=== PATIENT | male | born 1975 | race Caucasian/White ===

== ENCOUNTER 2020-10-13 11:24 | Inpatient (IN) | payer OTHER ==
[2020-10-07 18:13] VITALS: BMI 21.2
[~2020-10-13 11:24] MED LIST: BUPIVACAINE HCL/PF 0.5% (5 MG/ML) 30 ML VIAL IJ ONE; BUPIVACAINE LIPOSOME/PF (EXPAREL) 266 MG/20 ML VIAL ONE; DEXAMETHASONE SOD PHOSPHATE 4 MG/1 ML VIAL ONE; MIDAZOLAM HCL 2 MG/2 ML SINGLE DOSE VIAL ONE; ONDANSETRON 4 MG/2 ML VIAL ONE; PHENYLEPHRINE HCL 10 MG/1 ML SINGLE DOSE VIAL ONE; PROPOFOL 20 ML ONE; ROCURONIUM BROMIDE 50 MG/5 ML VIAL ONE; SUCCINYLCHOLINE CHLORIDE 200 MG/10 ML SYRINGE ONE; THROMBIN (RECOMBINANT) 5,000 UNIT VIAL TP ONE; ceFAZolin SODIUM 1 GM VIAL ONE; ePHEDrine SULFATE 50 MG/1 ML AMPULE ONE
[2020-10-13] MEDS ORDERED: oxyCODONE HCL 5 MG TABLET ONE (11:43)
[2020-10-13] MEDS: oxyCODONE HCL 5 MG TABLET PO ONE ×2 (11:48→12:48)
[2020-10-13] MEDS ORDERED: ONDANSETRON 4 MG/2 ML VIAL IVPUSH PRN (12:33)
[2020-10-13] MEDS ORDERED: oxyCODONE HCL 5 MG TABLET PO PRN (12:34)
[2020-10-13] MEDS ORDERED: LACTATED RINGERS SOLUTION 1,000 ML IV SCH (12:45)
[2020-10-13] MEDS: oxyCODONE HCL 5 MG TABLET PO PRN ×3 (13:10→21:02)
[2020-10-13] MEDS: oxyCODONE HCL 10 MG SUSTAINED ACTING TABLET PO SCH ×2 (13:12→21:01)
[2020-10-13] MEDS: ACETAMINOPHEN 325 MG TABLET (FP) PO SCH ×2 (13:13→18:22)
[2020-10-13] MEDS: ceFAZolin 2 GRAM PREMIX BAG IVPB SCH (18:23)
[2020-10-13] MEDS ORDERED: ATORVASTATIN CA 10 MG TABLET (FP) PO SCH (22:00)
[2020-10-14] MEDS: ceFAZolin 2 GRAM PREMIX BAG IVPB SCH ×2 (00:18→09:24)
[2020-10-14] MEDS: ACETAMINOPHEN 325 MG TABLET (FP) PO SCH ×3 (01:40→12:26)
[2020-10-14] MEDS: oxyCODONE HCL 5 MG TABLET PO PRN ×4 (03:59→12:27)
[2020-10-14 05:33] VITALS: BP 146/81; PULSE 77; TEMP 98.2
[2020-10-14] MEDS: oxyCODONE HCL 10 MG SUSTAINED ACTING TABLET PO SCH (09:25)
[2020-10-14] MEDS ORDERED: METOPROLOL TARTRATE 50 MG TABLET (FP) PO SCH (10:00)
[2020-10-14] MEDS ORDERED: PANTOPRAZOLE 40 MG TABLET PO SCH (10:00)
[2020-10-14] MEDS ORDERED: ASPIRIN 81 MG CHEWABLE TABLETS PO SCH (10:00)
[2020-10-14] MEDS ORDERED: VALSARTAN 80 MG TABLET PO SCH (10:00)
== END 2020-10-14 12:40 | disposition home or self-care (01) | DRG 483 ==
LOC: FM/S 11:24 → FASUSAT 11:24 → FM/S 13:32
PROVIDERS: ADMIT Orthopaedic Surgery; ATTEND Orthopaedic Surgery
PROC: 0RRK0JZ Replacement of Left Shoulder Joint with Synthetic Substitute, Open Approach (ICD-10-PCS; principal; 2020-10-13 08:30)
DX: M19.012 Primary osteoarthritis, left shoulder (principal)
CPT/HCPCS: 73030-TC-LT-FY; 88305-TC; 88311-TC; 94760

== ENCOUNTER 2021-01-20 04:14 | Day surgery (SDC) | payer OTHER ==
[2021-01-06 12:03] VITALS: BMI 19.9
[2021-01-20] MEDS ORDERED: ROPIVACAINE HCL 0.5% 30ML VIAL ONE (09:14)
[2021-01-20] MEDS ORDERED: MIDAZOLAM HCL 2 MG/2 ML SINGLE DOSE VIAL ONE ×3 (09:15→10:24)
[2021-01-20] MEDS ORDERED: DEXAMETHASONE SOD PHOSPHATE/PF 10 MG/ML SDV ONE (09:25)
[2021-01-20] MEDS ORDERED: PROPOFOL 20 ML ONE ×7 (10:24→12:43)
[2021-01-20] MEDS ORDERED: DEXAMETHASONE SOD PHOSPHATE 4 MG/1 ML VIAL ONE ×2 (10:24→12:28)
[2021-01-20] MEDS ORDERED: LIDOCAINE HCL/PF 2% SDV 5ML VIAL ONE (10:24)
[2021-01-20] MEDS ORDERED: ONDANSETRON 4 MG/2 ML VIAL ONE ×2 (10:24→12:28)
[2021-01-20] MEDS ORDERED: ceFAZolin SODIUM 1 GM VIAL IVPB ONE (11:00)
[2021-01-20] MEDS ORDERED: ceFAZolin SODIUM 1 GM VIAL ONE (11:03)
[2021-01-20] MEDS ORDERED: LABETALOL HCL 5 MG/1 ML (100MG/20 ML VIAL) ONE (11:03)
[2021-01-20] MEDS ORDERED: ePHEDrine SULFATE 50 MG/1 ML AMPULE ONE (11:19)
[2021-01-20] MEDS ORDERED: oxyCODONE HCL 5 MG TABLET PO PRN ×2 (11:34)
[2021-01-20] MEDS ORDERED: ONDANSETRON 4 MG/2 ML VIAL IVPUSH PRN (11:34)
[2021-01-20] MEDS ORDERED: LACTATED RINGERS SOLUTION 1,000 ML IV SCH (11:45)
[2021-01-20] MEDS ORDERED: KETOROLAC TROMETHAMINE 30 MG/1 ML VIAL ONE (12:28)
[2021-01-20 14:45] VITALS: BP 141/78; PULSE 85; TEMP 97.8
== END 2021-01-20 14:50 | disposition home or self-care (01) ==
LOC: JASU-SURG 04:14
PROVIDERS: ATTEND Orthopaedic Surgery
PROC: 0RHJ44Z Insertion of Internal Fixation Device into Right Shoulder Joint, Percutaneous Endoscopic Approach (ICD-10-PCS; 2021-01-20)
PROC: 0RNJ4ZZ Release Right Shoulder Joint, Percutaneous Endoscopic Approach (ICD-10-PCS; principal; 2021-01-20 10:00)
PROC: 0LQ14ZZ Repair Right Shoulder Tendon, Percutaneous Endoscopic Approach (ICD-10-PCS; 2021-01-20 10:00)
DX: M75.121 Complete rotator cuff tear or rupture of right shoulder, not specified as traumatic (principal); M75.41 Impingement syndrome of right shoulder; M19.011 Primary osteoarthritis, right shoulder; M75.51 Bursitis of right shoulder; S46.211A Strain of muscle, fascia and tendon of other parts of biceps, right arm, initial encounter; X58.XXXA Exposure to other specified factors, initial encounter; Y93.9 Activity, unspecified; Y92.9 Unspecified place or not applicable
CPT/HCPCS: 29823; 29826; 29827; C1713; 88304-TC; 94760